=== PATIENT | female | born 1990 | race Caucasian/White ===

== ENCOUNTER 2016-05-15 12:14 | Emergency (ER) ==
[2016-05-15 12:35] VITALS: BP 137/93
== END 2016-05-15 13:46 | disposition left against medical advice (07) ==
LOC: ED 12:14
DX: R51 Headache (principal); K08.89 Other specified disorders of teeth and supporting structures

== ENCOUNTER 2016-05-20 09:24 | Emergency (ER) ==
--- NOTE | 2016-05-20 11:39 | PROVIDER DOCUMENTATION ---
HPI-EENT General - General Chief Complaint: Toothache Stated Complaint: FACIAL PAIN Time Seen by Provider: 05/20/16 11:30 Source: patient, family Allergies/Adverse Reactions: Patient Allergies Allergy/AdvReac Type Severity Reaction Status Date / Time amoxicillin Allergy NAUSEA/VOMI Verified 05/20/16 11:15 TING promethazine HCl * Allergy RASH Verified 03/02/16 20:45 [From Phenergan] Home Medications: Home Medication List Medication Instructions Recorded Confirmed Last Taken Type Benzocaine 20% Gel [Orajel Maximum 1 applicatn TOP 4XDAY PRN PRN #1 03/02/1605/20/[address] 20% Gel] tube Sertraline [Zoloft] 25 mg PO DAILY 03/02/16 05/20/16 1 Month Ago History Hydrocodone/APAP 5 mg/325 mg 1 each PO Q6H PRN PRN #5 tablet 05/20/16 Unknown Rx [[place]-5] Ondansetron Odt [Zofran 4 mg Odt] 4 mg PO Q6H PRN PRN #10 tablet 05/20/16 Unknown Rx Penicillin V Potassium 500 mg PO BID #20 tablet 05/20/16 Unknown Rx - History of Present Illness-EENT General Nature of Presenting Problem: 25 year old WF presents with c/o left upper/left lower tooth tenderness. pt reports onset 1 week ago with associated nausea. pt reports she has tried topical medications without relief. EENT Location: reports: dental Quality of Pain: reports: aching, dull Severity: reports: mild Onset/Duration: reports: 1 week ago Timing: reports: still present, constant, getting worse Prearrival Treatment: Initiated over the counter meds Associated Symptoms: reports: tooth pain. denies: facial pain/swelling, fever, malaise, sore throat - Throat/Dental Throat/Dental Problem Symptoms: reports: toothache. denies: jaw pain, sore throat, swelling of jaw/face, trouble breathing, throat swelling, unable to swallow Throat/Dental Problem Context: reports: dental decay. denies: recent dental extractions, exposure to allergen, foreign body, fractured tooth, ingestion, trauma/injury Recently seen a dentist or have an appointment?: No Review of Systems - Adult - REVIEW OF SYSTEMS - ADULT Constitutional: reports: no symptoms reported. denies: chills, fever, fatique Eyes: reports: no symptoms reported. denies: discharge, blurred vision, double vision, redness Ears, Nose, Mouth & Throat: reports: see HPI, mouth/dental pain. denies: ear discharge, ear pain, hearing loss, tinnitus, epistaxis, sinus problem, nose pain , loose teeth, mouth swelling, hoarseness, throat pain, throat swelling Cardiovascular: reports: no symptoms reported. denies: chest pain, palpitations , syncope Respiratory: reports: no symptoms reported. denies: chronic cough, cough, shortness of breath, wheezing Gastrointestinal: reports: see HPI, nausea. denies: abdominal pain, diarrhea, difficulty swallowing, frequent heartburn, poor appetite, rectal bleeding, vomiting Genitourinary: reports: no symptoms reported. denies: dysuria, hematuria, urgency Musculoskeletal: reports: no symptoms reported. denies: bone pain, joint pain, joint swelling, neck pain Integumentary: reports: no symptoms reported. denies: hives, itching, skin sores/ulcer Neurological: reports: no symptoms reported. denies: ataxia, dizziness/vertigo Psychiatric: reports: no symptoms reported Endocrine: reports: no symptoms reported Hematologic/Lymphatic: reports: no symptoms reported Allergic/Immunologic: reports: no symptoms reported All Other Systems: Reviewed and Negative Past History - Adult - PAST MEDICAL HISTORY-ADULT Review of Records: reports: Old Records Reviewed, Nursing Assessment Review, Medications Reviewed, Social history reviewed & non-contributory. Major Childhood Illnesses: reports: denies history Cardiovascular: reports: denies history Respiratory: reports: denies history Gastrointestinal: reports: denies history Obstetrical/Gynecological: reports: denies history Genitourinary: reports: denies history Musculoskeletal: reports: denies history Neurological: reports: denies history Endocrine/Immune: reports: denies history Other Conditions: reports: denies history - FAMILY HISTORY Family History: reviewed, not pertinent - SOCIAL HISTORY Smoking: cigarettes Provider spent 3-5 mins advising pt. on dangers of tobacco.: Discussed manners to quit use, and f/u contacts for add'l counseling. Substance Use: none/never Alcohol Use Frequency: never Physical Exam- EENT - Physical Exam EENT Initial Vital Signs Reviewed: Yes General Appearance: appears well, alert, no apparent distress. negative: mild distress, moderate distress, severe distress Eye Exam: bilateral eye: normal inspection Ear Exam: bilateral ear: auricle normal, canal normal, TM normal Nasal Exam: normal inspection. negative: active bleeding, discharge, dried blood, foreign body, sinus tenderness Throat Exam: normal mouth inspection, pharynx normal, dental tenderness. negative: excessive drooling, foreign body, mandibular swelling, maxillary swelling, pharynx swelling, pharynx tenderness, tongue swollen, tonsillar exudate, tonsillar swelling, trismus, uvula swelling, voice changes Mouth,Throat: 1 - multiple caries throughout oral cavity. 2 - tenderness, without erythema, unable to palpate abscess Neck: non-tender, full range of motion, supple, normal inspection. negative: lymphadenopathy Respiratory: chest non-tender, lungs clear, normal breath sounds, no pleuratic chest pain, no respiratory distress, no accessory muscle use Cardiovascular: normal peripheral pulses, regular rate, rhythm Abdominal Exam: normal bowel sounds, non tender, soft Lymphatic: negative: cervical node tenderness Back Exam: normal inspection, no CVA tenderness, no vertebral tenderness Extremity: normal range of motion, non-tender, normal gait, normal inspection, no pedal edema, no calf tenderness, normal capillary refill Integumentary: normal color, normal turgor, warm/dry Neurologic: grossly normal, no motor/sensory deficits Psych/Mental Status: normal mood/affect, normal thought content, normal thought process, oriented x 3 Progress - PLAN OF CARE/RESULTS Progress/Plan/Lab Results: Orders Category Date Time Status Hydrocodone/APAP 7.5 mg/325 mg [[place]-7.5] Med 05/20/16 11:45 Discontinued 1 each PO NOW ONE Ondansetron Odt [Zofran Odt] Med 05/20/16 11:45 Discontinued 4 mg PO NOW ONE Vital Signs - 24 hr 05/20/16 05/20/16 09:41 12:06 Temperature 98.6 F Pulse Rate 94 H 85 Respiratory 20 17 Rate Blood Pressure 117/84 121/68 O2 Sat by Pulse 100 100 Oximetry Departure - Departure Time of Disposition Order: 11:37 DIAGNOSIS: Dental caries, Abscess, dental Disposition: HOME 01 Certified Medical Emergency: Emergent Condition: Stable Additional Instructions: [facility], see the handout for contact information. ED Follow Up Instructions: You have been treated by a care provider in the Emergency Department. These instructions are being provided to you so you can have an understanding of how to care for yourself upon discharge. Upon discharge from the Emergency Department, you are responsible for making arrangements for follow-up care by a physician of your choice. Take all prescribed medications as directed. Return to the Emergency Department immediately for any new or worsening symptoms. You may call the Physician Referral phone number at [phone] to obtain a list of Physicians who are taking new patients. Prescriptions: Hydrocodone/APAP 5 mg/325 mg [[place]-5] 1 each PO Q6H PRN PRN #5 tablet PRN Reason: tooth pain Penicillin V Potassium 500 mg PO BID #20 tablet Ondansetron Odt [Zofran 4 mg Odt] 4 mg PO Q6H PRN PRN #10 tablet PRN Reason: Nausea Referrals: None,PCP [Primary Care Provider] - Forms: Return to School/Parent Work Instructions: Dental Pain, Dental Abscess Attestation - Physician/ GAYATRI Attestation Patient care was provided by Advanced Practice Provider:: Yes Advanced Practice Provider:: L[facility] Advanced Practice Provider documentation review:: The Mid-level provider documentation, treatment plan and medical decision making was reviewed by the physician who agrees with all treatment and medical decision making by the MLP.
[2016-05-20] MEDS ORDERED: NORCO-7.5 PO ONE (11:45)
[2016-05-20] MEDS ORDERED: ZOFRAN ODT PO ONE (11:45)
[2016-05-20 12:10] VITALS: BP 121/68
== END 2016-05-20 12:07 | disposition home or self-care (01) ==
LOC: ED 09:24
DX: K04.7 Periapical abscess without sinus (principal); K02.9 Dental caries, unspecified; K08.89 Other specified disorders of teeth and supporting structures; R11.0 Nausea; F17.210 Nicotine dependence, cigarettes, uncomplicated; Z71.6 Tobacco abuse counseling; Z79.899 Other long term (current) drug therapy